=== PATIENT | female | born 1955 | race Caucasian/White ===

== ENCOUNTER 2025-02-27 06:44 | Day surgery (SDC) | payer OTHER ==
[2025-02-25 12:15] VITALS: BMI 19.2
[2025-02-27 08:43] VITALS: RESP 18
[2025-02-27] MEDS ORDERED: ACETAMINOPHEN 500 MG TABLET (FP) PO PRN (08:53)
[2025-02-27 09:41] VITALS: BP 131/74; PULSE 78; TEMP 97.3
== END 2025-02-27 09:40 | disposition home or self-care (01) ==
LOC: JASU-SURG 06:44
PROVIDERS: ATTEND Pain Medicine Pain Medicine
PROC: 3E0T33Z Introduction of Anti-inflammatory into Peripheral Nerves and Plexi, Percutaneous Approach (ICD-10-PCS; 2025-02-27)
PROC: 3E0T3BZ Introduction of Anesthetic Agent into Peripheral Nerves and Plexi, Percutaneous Approach (ICD-10-PCS; principal; 2025-02-27 09:15)
DX: M47.812 Spondylosis without myelopathy or radiculopathy, cervical region (principal)
CPT/HCPCS: 76000-TC-FY